=== PATIENT | female | born 1975 | race Caucasian/White ===

== ENCOUNTER 2018-05-16 08:44 | Emergency (ER) | payer BC, OTHER ==
[~2018-05-16] VITALS: Ht 170.2 cm; Wt 114.3 kg
[2018-05-16] MEDS ORDERED: FERROUS SULFAT325 MG ORAL (08:51)
[2018-05-16] MEDS ORDERED: Isovue-300 100ml vial INJ PRN (09:00)
[2018-05-16] MEDS ORDERED: Ketorolac 30mg Inj IV ONE (09:00)
--- NOTE | 2018-05-16 09:02 | Emergency Room Report ---
History of Present Illness General Chief Complaint: Abdominal Pain Source: Patient Present Illness HPI Patient present with complaints of left lower abdominal pain Also pain radiating to the left flank area Patient had recent episode of vomiting and diarrhea That had subsided patient had finished her menstrual cycle And the pain has persisted now over the past several days Patient had to take increased medications over the past night with minimal improvement Denies any fevers or chills There is a pleuritic component to the lower abdominal pain with some worsening with inspiration Denies any vomiting denies any fevers or rash Patient reports previous ovarian cyst Also previous cholecystectomy Allergies: Coded Allergies: CODEINE (Verified Allergy, Unknown, 05/16/18) Patient History Past Medical History: see triage record Pertinent Family History: none Last Menstrual Period: 05/10/18 Reviewed Nursing Documentation: PMH: Agreed; PSxH: Agreed Nursing Documentation-PMH Past Medical History: No History, Except For Hx Cardiac Problems: No - anemia Hx Gastrointestinal Problems: No - diverticulitis, cholecystectomy Review of Systems All Other Systems: negative except mentioned in HPI Physical Exam Vital Signs Date Time Temp Pulse Resp B/P (MAP) Pulse Ox O2 Delivery O2 Flow Rate FiO2 05/16/18 08:48 98.4 82 18 138/97 97 Room Air 98.4 Sp02 EP Interpretation: reviewed, normal General Appearance: no apparent distress Head: normocephalic, atraumatic Eyes: bilateral eye PERRL, bilateral eye EOMI ENT: hearing grossly normal, normal pharynx Neck: supple Respiratory: lungs clear Cardiovascular #1: regular rate, rhythm, no edema Gastrointestinal: non tender - On palpation however subjectively points to left lower quadrant, soft Musculoskeletal: normal inspection Neurologic: alert, oriented x3, responsive Skin: normal color, no rash, warm/dry Lymphatic: no adenopathy Medical Decision Making Diagnostic Impression: Primary Impression: Diverticulitis ER Course With the history exam and presentation, multiple differentials considered, including but not limited to appendicitis, gastritis, cholecystitis, diverticulitis Patient's test is negative Blood work is normal Given the patient's discomfort repeat pain medicine was required and therefore imaging was obtained to evaluate possible perforation CT does show findings consistent with diverticulitis appears to be non- complicated Which also correlates clinically and with laboratory On repeat exam patient has done better Initial antibiotics were provided in the ER IV Patient is afebrile does not appear septic or toxic and will have initial conservative outpatient trial Labs Test 05/16/18 09:20 05/16/18 10:20 White Blood Count 9.4 K/UL (4.8-10.8) Red Blood Count 4.83 M/UL (4.20-5.40) Hemoglobin 12.6 G/DL (12.0-16.0) Hematocrit 38.5 % (37.0-47.0) Mean Corpuscular Volume 80 FL (80-99) Mean Corpuscular Hemoglobin 26.0 PG (27.0-31.0) Mean Corpuscular Hemoglobin Concent 32.6 G/DL (32.0-36.0) Red Cell Distribution Width 12.1 % (11.6-14.8) Platelet Count 332 K/UL (150-450) Mean Platelet Volume 6.0 FL (6.5-10.1) Neutrophils (%) (Auto) 66.0 % (45.0-75.0) Lymphocytes (%) (Auto) 24.8 % (20.0-45.0) Monocytes (%) (Auto) 6.8 % (1.0-10.0) Eosinophils (%) (Auto) 1.4 % (0.0-3.0) Basophils (%) (Auto) 1.0 % (0.0-2.0) Sodium Level 139 MMOL/L (136-145) Potassium Level 3.9 MMOL/L (3.5-5.1) Chloride Level 103 MMOL/L (98-107) Carbon Dioxide Level 24 MMOL/L (21-32) Anion Gap 12 mmol/L (5-15) Blood Urea Nitrogen 9 mg/dL (7-18) Creatinine 0.7 MG/DL (0.55-1.30) Estimat Glomerular Filtration Rate > 60 mL/min (>60) Glucose Level 91 MG/DL (74-106) Calcium Level 8.6 MG/DL (8.5-10.1) Total Bilirubin 0.4 MG/DL (0.2-1.0) Aspartate Amino Transf (AST/SGOT) 14 U/L (15-37) Alanine Aminotransferase (ALT/SGPT) 22 U/L (12-78) Alkaline Phosphatase 77 U/L (46-116) Total Protein 7.9 G/DL (6.4-8.2) Albumin 3.3 G/DL (3.4-5.0) Globulin 4.6 g/dL Albumin/Globulin Ratio 0.7 (1.0-2.7) Human Chorionic Gonadotropin, Quant < 1 mIU/mL (1-6) Urine Color Pale yellow Urine Appearance Clear Urine pH 6.5 (4.5-8.0) Urine Specific [place] 1.005 (1.005-1.035) Urine Protein Negative (NEGATIVE) Urine Glucose (UA) Negative (NEGATIVE) Urine Ketones Negative (NEGATIVE) Urine Blood Negative (NEGATIVE) Urine Nitrite Negative (NEGATIVE) Urine Bilirubin Negative (NEGATIVE) Urine Urobilinogen Normal MG/DL (0.0-1.0) Urine Leukocyte Esterase Negative (NEGATIVE) Urine HCG, Qualitative Negative (NEGATIVE) CT/MRI/US Diagnostic Results CT/MRI/US Diagnostic Results : Impression CT abdomen pelvisImpression: Findings consistent with uncomplicated acute diverticulitis of the mid descending colon Surgically absent gallbladder. Mildly dilated extra hepatic bile ducts, likely related to prior gallbladder surgery. No definite downstream obstructive lesion , but correlation with liver function tests is recommended Enlarged fibroid uterus Incidental finding small fat-containing umbilical hernia Last Vital Signs Date Time Temp Pulse Resp B/P (MAP) Pulse Ox O2 Delivery O2 Flow Rate FiO2 05/16/18 08:48 98.4 82 18 138/97 97 Room Air 98.4 Status: improved Disposition: HOME, SELF-CARE Condition: Improved Scripts Levofloxacin* (LEVAQUIN*) 500 Mg Tablet 500 MG ORAL DAILY for 7 Days, #7 TAB Prov: Sindhu Tomas DO 05/16/18 Hydrocodone Bit/Acetaminophen 10-325* (NORCO 10-325*) 1 Each Tablet 1 TAB ORAL Q8HR PRN for For Pain, #12 TAB 0 Refills PRN PAIN Prov: AnnadoSindhu faust DO 05/16/18 Ibuprofen* (MOTRIN*) 600 Mg Tablet 600 MG ORAL Q8H PRN for For Pain, #20 TAB 0 Refills Prov: Sindhu Tomas DO 05/16/18 Metronidazole* (FLAGYL*) 500 Mg Tablet 500 MG ORAL THREE TIMES A DAY, #21 TAB Prov: Sindhu Tomas DO 05/16/18 Levofloxacin* (LEVAQUIN*) 500 Mg Tablet 500 MG ORAL DAILY for 7 Days, TAB Prov: Sindhu Tomas DO 05/16/18 Referrals: NON PHYSICIAN (PCP) Additional Instructions: Patient is provided with the discharge instructions notified to follow up with primary doctor in the next 2-3 days otherwise return to the er with any worsening symptoms. Please note that this report is being documented using [employer] technology. This can lead to erroneous entry secondary to incorrect interpretation by the dictating instrument. Sindhu Tomas DO May 16, 2018 09:02
[2018-05-16 09:23] VITALS: BP 141/89
[2018-05-16 09:36] LABS: EOSINOPHILS % (AUTO) 1.4 % (0.0-3.0); HEMATOCRIT 38.5 % (37.0-47.0); HEMOGLOBIN 12.6 G/DL (12.0-16.0); LYMPHOCYTES % (AUTO) 24.8 % (20.0-45.0); MEAN CORPUSCULAR VOLUME 80 FL (80-99); MONOCYTES % (AUTO) 6.8 % (1.0-10.0); PLATELET COUNT 332 K/UL (150-450); RED BLOOD COUNT 4.83 M/UL (4.20-5.40); RED CELL DISTRIBUTION WIDTH 12.1 % (11.6-14.8); WHITE BLOOD COUNT 9.4 K/UL (4.8-10.8)
[2018-05-16 09:37] LABS: ANION GAP 12 mmol/L (5-15); BLOOD UREA NITROGEN 9 mg/dL (7-18); CALCIUM 8.6 MG/DL (8.5-10.1); CARBON DIOXIDE 24 MMOL/L (21-32); CHLORIDE 103 MMOL/L (98-107); CREATININE 0.7 MG/DL (0.55-1.30); POTASSIUM 3.9 MMOL/L (3.5-5.1); SODIUM 139 MMOL/L (136-145)
[2018-05-16 09:42] LABS: ALANINE AMINOTRANSFERASE 22 U/L (12-78); ALBUMIN 3.3 G/DL (3.4-5.0); ALBUMIN/GLOBULIN RATIO 0.7 (1.0-2.7); ALKALINE PHOSPHATASE 77 U/L (46-116); ASPARTATE AMINO TRANSFERASE 14 U/L (15-37); BILIRUBIN,TOTAL 0.4 MG/DL (0.2-1.0)
[2018-05-16] MEDS ORDERED: Morphine Sulfate 4mg/ml Inj (IV/IM USE ONLY) IVP ONE ×2 (09:45→10:45)
--- NOTE | 2018-05-16 10:36 | Diagnostic Imaging Report ---
Clinical Indication: Abdominal pain Technique: No oral contrast utilized, per emergency room physician request IV administration nonionic contrast. Venous phase spiral acquisition obtained through the abdomen and pelvis. Multiplanar reconstructions were generated. Total dose length product 1064.99 mGycm. CTDIvol(s) 19.75 mGy. Dose reduction achieved using automated exposure control Comparison: none Findings: There is colonic diverticulosis. There is infiltration of the pericolonic fat adjacent to the mid descending colon surrounding a prominent diverticulum.. No extraluminal gas or focal fluid collection demonstrated The appendix is normal. No small bowel distention. No free or loculated intraperitoneal gas or fluid is evident. There is a small fat-containing umbilical hernia. Distal esophagus, stomach, duodenum are unremarkable. The gallbladder is surgically absent. The extrahepatic bile ducts are mildly dilated, common bile duct measuring up to 10 mm in diameter, no evidence of downstream obstructive lesion. The liver, pancreas, spleen, adrenals, kidneys are all unremarkable. No retroperitoneal or mesenteric mass or adenopathy. The uterus is enlarged with a multilobulated contour and multiple exophytic masses. No adnexal mass demonstrated. The included lung bases are clear. The bones are unremarkable. Impression: Findings consistent with uncomplicated acute diverticulitis of the mid descending colon Surgically absent gallbladder. Mildly dilated extra hepatic bile ducts, likely related to prior gallbladder surgery. No definite downstream obstructive lesion, but correlation with liver function tests is recommended Enlarged fibroid uterus Incidental finding small fat-containing umbilical hernia The CT scanner at [facility] is accredited by the [employer] and the scans are performed using protocols designed to limit radiation exposure to as low as reasonably achievable to attain images of sufficient resolution adequate for diagnostic evaluation.
[2018-05-16 10:41] LABS: APPEARANCE,URINE CLEAR; BILIRUBIN, URINE NEGATIVE (NEGATIVE); COLOR,URINE PALE YELLOW; GLUCOSE, URINE (UA) NEGATIVE (NEGATIVE); KETONES,URINE NEGATIVE (NEGATIVE); LEUKOCYTE ESTERASE ,URINE NEGATIVE (NEGATIVE); NITRITE,URINE NEGATIVE (NEGATIVE); PH,URINE 6.5 (4.5-8.0); PROTEIN,URINE NEGATIVE (NEGATIVE); UROBILINOGEN,URINE NORMAL MG/DL (0.0-1.0)
[2018-05-16] MEDS ORDERED: DiphenhydrAMINE 50mg/ml Inj IVP ONE (10:45)
[2018-05-16] MEDS ORDERED: LEVAQUIN500 MG ORAL ×2 (11:10→11:40)
[2018-05-16] MEDS ORDERED: METRONIDAZOLE500 MG ORAL (11:10)
[2018-05-16] MEDS ORDERED: NORCO 10-325 T1 EACH ORAL (11:10)
[2018-05-16] MEDS ORDERED: IBUPROFEN600 MG ORAL (11:10)
[2018-05-16 11:20] VITALS: BP 132/79
[2018-05-16 12:14] VITALS: BP 141/89
== END 2018-05-16 12:43 | disposition home or self-care (01) ==
LOC: EMR 08:58
DX: K57.32 Diverticulitis of large intestine without perforation or abscess without bleeding (principal); N85.2 Hypertrophy of uterus; Z88.5 Allergy status to narcotic agent; Z90.49 Acquired absence of other specified parts of digestive tract
CPT/HCPCS: 36415; 74177; 80053; 81003; 81025; 84702; 85025; 96361; 96365; 96367; 96375; 96376; 99284; J1200; J1885; J1956; J2270; J2405; Q9967

== ENCOUNTER 2020-03-20 20:52 | Emergency (ER) | payer BC, OTHER ==
[~2020-03-20] VITALS: Ht 170.2 cm; Wt 126.6 kg
[~2020-03-20 20:52] MED LIST: FERROUS SULFAT325 MG ORAL; IBUPROFEN600 MG ORAL; LEVAQUIN500 MG ORAL; METRONIDAZOLE500 MG ORAL; NORCO 10-325 T1 EACH ORAL
[2020-03-20] MEDS ORDERED: CIPRO500 MG PO (21:02)
[2020-03-20 21:10] VITALS: BP 160/101
--- NOTE | 2020-03-20 21:10 | NUR ---
ED Nurse Note: Patient walked into ED for c/o LUQ abdominal pain that is dull in nature onset one week ago. Patient spoke with doctor regarding symptoms and was instruced to come to the ED. Patient denies cough, SOB, recent fever, N/V/D. Patient is aaox4, breathing is normal and unlabored. Patient in bed with safety measures in place; will cont. to monitor.
--- NOTE | 2020-03-20 21:30 | NUR ---
ED Nurse Note: She reports hx of diverticulitis in the past and is concerned the pain is due to that previous diagnosis.
[2020-03-20] MEDS ORDERED: Omnipaque-300 100ml vial INJ PRN (22:15)
[2020-03-20] MEDS ORDERED: Morphine Sulfate 2mg/ml Inj(IV/IM USE ONLY) IVP ONE (22:15)
--- NOTE | 2020-03-20 22:26 | Emergency Room Report ---
History of Present Illness General Chief Complaint: Abdominal Pain Source: Patient Present Illness HPI 44-year-old female here after receiving abnormal test result of an elevated CRP of 29, also complaining of abdominal pain. Patient has a history of diverticulitis which she has had in the past and was uncomplicated but required IV antibiotic treatment inpatient in the hospital for several days. She says that this was 2 years ago. He said that 3 days ago she began having the same type of pain and also some loose stool. She went to an urgent care where she had labs drawn and was started on 7 days of Flagyl and ciprofloxacin. She has been taking his medications for 3 days and says that she feels about the same pain as she did 3 days ago. Says however she came to the emergency department because "they told me that I had a CRP of 29 and to get it checked out." Pain is dull in nature, located in the left lower quadrant, radiates slightly to the left upper quadrant. Denies fevers, chills, chest pain, palpitation, shortness of breath, back pain, other abdominal pain, nausea, vomiting, diarrhea, dysuria. Patient has history of fibroids and says that she experiences chronic abdominal pain periodically. Allergies: Coded Allergies: CODEINE (Verified Allergy, Unknown, 05/16/18) COVID-19 Screening Contact w/high risk pt: No Experienced COVID-19 symptoms?: No COVID-19 Testing performed METHODOLOGIST: No Patient History Last Menstrual Period: 03/07/20 Now: No Nursing Documentation-[facility] Past Medical History: No History, Except For Hx Cardiac Problems: No - anemia Hx Gastrointestinal Problems: No - diverticulitis, cholecystectomy Physical Exam Vital Signs Date Time Temp Pulse Resp B/P (MAP) Pulse Ox O2 Delivery O2 Flow Rate FiO2 03/20/20 20:59 97.5 80 16 160/101 (120) 98 Room Air Sp02 EP Interpretation: reviewed, normal General Appearance: no apparent distress, alert, GCS 15, non-toxic Head: normocephalic, atraumatic Eyes: bilateral eye normal inspection, bilateral eye PERRL ENT: hearing grossly normal, normal pharynx, no angioedema, normal voice Neck: full range of motion, supple/symm/no masses Respiratory: chest non-tender, lungs clear, normal breath sounds, speaking full sentences Cardiovascular #1: regular rate, rhythm, no edema Cardiovascular #2: 2+ carotid (R), 2+ carotid (L), 2+ radial (R), 2+ radial (L) , 2+ dorsalis pedis (R), 2+ dorsalis pedis (L) Gastrointestinal: normal bowel sounds, soft, non-distended, no guarding, no rebound, other - Very mild left lower quadrant abdominal pain on palpation Rectal: deferred Genitourinary: normal inspection, no CVA tenderness Musculoskeletal: back normal, normal range of motion, calf tenderness, gait/ station normal, non-tender Neurologic: alert, motor strength/tone normal, oriented x3, sensory intact, responsive, speech normal Psychiatric: judgement/insight normal, memory normal, mood/affect normal, no suicidal/homicidal ideation Lymphatic: no adenopathy Medical Decision Making Diagnostic Impression: Primary Impression: Diverticulitis Additional Impression: Abdominal pain ER Course Laboratory Tests Test 03/20/20 22:36 03/20/20 22:38 Urine Color Pale yellow Urine Appearance Slightly cloudy Urine pH 6 (4.5-8.0) Urine Specific [place] 1.010 (1.005-1.035) Urine Protein Negative (NEGATIVE) Urine Glucose (UA) Negative (NEGATIVE) Urine Ketones 2+ (NEGATIVE) H Urine Blood 1+ (NEGATIVE) H Urine Nitrite Negative (NEGATIVE) Urine Bilirubin Negative (NEGATIVE) Urine Urobilinogen Normal MG/DL (0.0-1.0) Urine Leukocyte Esterase 1+ (NEGATIVE) H Urine RBC 2-4 /HPF (0 - 2) H Urine WBC 5-10 /HPF (0 - 2) H Urine Squamous Epithelial Cells Moderate /LPF (NONE/OCC) H Urine Bacteria Few /HPF (NONE) Urine HCG, Qualitative Negative (NEGATIVE) White Blood Count 8.3 K/UL (4.8-10.8) Red Blood Count 5.23 M/UL (4.20-5.40) Hemoglobin 13.7 G/DL (12.0-16.0) Hematocrit 42.5 % (37.0-47.0) Mean Corpuscular Volume 81 FL (80-99) Mean Corpuscular Hemoglobin 26.3 PG (27.0-31.0) L Mean Corpuscular Hemoglobin Concent 32.3 G/DL (32.0-36.0) Red Cell Distribution Width 16.0 % (11.6-14.8) H Platelet Count 308 K/UL (150-450) Mean Platelet Volume 7.0 FL (6.5-10.1) Neutrophils (%) (Auto) 61.3 % (45.0-75.0) Lymphocytes (%) (Auto) 30.9 % (20.0-45.0) Monocytes (%) (Auto) 4.7 % (1.0-10.0) Eosinophils (%) (Auto) 2.0 % (0.0-3.0) Basophils (%) (Auto) 1.1 % (0.0-2.0) Sodium Level 137 MMOL/L (136-145) Potassium Level 3.5 MMOL/L (3.5-5.1) Chloride Level 100 MMOL/L (98-107) Carbon Dioxide Level 28 MMOL/L (21-32) Anion Gap 9 mmol/L (5-15) Blood Urea Nitrogen 10 mg/dL (7-18) Creatinine 0.8 MG/DL (0.55-1.30) Estimated Glomerular Filtration Rate > 60 mL/min (>60) Glucose Level 90 MG/DL (74-106) Calcium Level 9.5 MG/DL (8.5-10.1) Total Bilirubin 0.3 MG/DL (0.2-1.0) Aspartate Amino Transferase (AST) 22 U/L (15-37) Alanine Aminotransferase (ALT) 44 U/L (12-78) Alkaline Phosphatase 57 U/L (46-116) Total Protein 8.8 G/DL (6.4-8.2) H Albumin 3.6 G/DL (3.4-5.0) Globulin 5.2 g/dL Albumin/Globulin Ratio 0.7 (1.0-2.7) L Lipase 143 U/L (73-393) IMPRESSION: 1. Status post cholecystectomy. There is some prominence of the biliary ducts which can be seen normally status post cholecystectomy. The common duct measures up to 10 mm. This has a similar appearance compared to the prior exam. An obstructive process cannot be excluded. 2. Cardiomegaly. 3. Enlarged fibroid uterus. The uterus appears increased in size compared to the prior exam and measures 13.6 x 13.9 x 17.5 cm. 4. Diverticulosis without evidence for diverticulitis. 44-year-old female with history of diverticulitis here with abdominal pain. Patient has been treated as an outpatient for the past 3 days with ciprofloxacin and Flagyl and came to the emergency department because she was told by the urgent care clinic that she had a CRP of 29. Patient was in no distress whatsoever and had a largely benign abdominal examination with only some very mild abdominal pain in the left lower quadrant. She was non- peritoneal again was not guarding or had any rebound tenderness. Labs were largely unremarkable and patient's CT abdomen pelvis with IV contrast showed diverticulosis without any overt evidence of diverticulitis or any other complication such as abscess or perforation. Patient has been tolerating p.o. and says that she wishes to continue outpatient treatment of her diverticulitis and will finish her course of ciprofloxacin and Flagyl at home. Was given strict return precautions to come back to the emergency department she has any worsening abdominal pain, fevers, vomiting, evidence of obstruction. She expressed understanding and was discharged. Ddx: Hernia, bladder or kidney stones, diverticulitis, enteritis, appendicitis, genital pathology Last Vital Signs Date Time Temp Pulse Resp B/P (MAP) Pulse Ox O2 Delivery O2 Flow Rate FiO2 03/20/20 20:59 97.5 80 16 160/101 (120) 98 Room Air Scripts Hydrocodone Bit/Acetaminophen 5-325* (NORCO 5-325 TABLET*) 1 Each Tablet 1 TAB ORAL Q4H PRN for For Pain, #10 TAB Prov: Berhane Gleason M.D. 03/21/20 Referrals: NON PHYSICIAN (PCP) Berhane Gleason M.D. Mar 20, 2020 22:26
[2020-03-20 23:20] LABS: BASOPHILS % (AUTO) 1.1 % (0.0-2.0); HEMATOCRIT 42.5 % (37.0-47.0); HEMOGLOBIN 13.7 G/DL (12.0-16.0); LYMPHOCYTES % (AUTO) 30.9 % (20.0-45.0); MEAN CORPUSCULAR VOLUME 81 FL (80-99); MONOCYTES % (AUTO) 4.7 % (1.0-10.0); NEUTROPHILS % (AUTO) 61.3 % (45.0-75.0); PLATELET COUNT 308 K/UL (150-450); RED BLOOD COUNT 5.23 M/UL (4.20-5.40); WHITE BLOOD COUNT 8.3 K/UL (4.8-10.8)
[2020-03-20 23:21] LABS: APPEARANCE,URINE SLIGHTLY CLOUDY; BILIRUBIN, URINE NEGATIVE (NEGATIVE); COLOR,URINE PALE YELLOW; GLUCOSE, URINE (UA) NEGATIVE (NEGATIVE); KETONES,URINE 2+ (NEGATIVE); LEUKOCYTE ESTERASE ,URINE 1+ (NEGATIVE); NITRITE,URINE NEGATIVE (NEGATIVE); PH,URINE 6 (4.5-8.0); PROTEIN,URINE NEGATIVE (NEGATIVE); UROBILINOGEN,URINE NORMAL MG/DL (0.0-1.0)
[2020-03-20 23:22] LABS: ANION GAP 9 mmol/L (5-15); BLOOD UREA NITROGEN 10 mg/dL (7-18); CALCIUM 9.5 MG/DL (8.5-10.1); CARBON DIOXIDE 28 MMOL/L (21-32); CHLORIDE 100 MMOL/L (98-107); CREATININE 0.8 MG/DL (0.55-1.30); POTASSIUM 3.5 MMOL/L (3.5-5.1); SODIUM 137 MMOL/L (136-145)
[2020-03-20 23:26] LABS: ALANINE AMINOTRANSFERASE 44 U/L (12-78); ALBUMIN 3.6 G/DL (3.4-5.0); ALBUMIN/GLOBULIN RATIO 0.7 (1.0-2.7); ALKALINE PHOSPHATASE 57 U/L (46-116); ASPARTATE AMINO TRANSFERASE 22 U/L (15-37); BILIRUBIN,TOTAL 0.3 MG/DL (0.2-1.0)
[2020-03-20 23:30] VITALS: BP 155/88
--- NOTE | 2020-03-20 23:30 | NUR ---
ED Nurse Note: Patient is resting in bed, no acute distress at this time. Patient reports decreased pain after medication admin. Will continue to monitor patient. Breathing is normal and unlabored.
--- NOTE | 2020-03-21 00:18 | Diagnostic Imaging Report ---
EXAM: CT Abdomen and Pelvis With Intravenous Contrast CLINICAL HISTORY: Right upper quadrant pain TECHNIQUE: Axial computed tomography images of the abdomen and pelvis with intravenous contrast. CTDI is 18.30 mGy and DLP is 891.10 mGy-cm. One or more of the following dose reduction techniques were used: automated exposure control, adjustment of the mA and/or kV according to patient size, use of iterative reconstruction technique. Coronal and sagittal reformatted images were created and reviewed. COMPARISON: 05/16/18 FINDINGS: Limitations: Evaluation is limited secondary to artifact from the patient's body habitus and secondary to motion artifact. Lung bases: The lung bases are unremarkable. Heart: Cardiomegaly. ABDOMEN: Liver: The liver is unremarkable. Gallbladder and bile ducts: Status post cholecystectomy. There is some prominence of the biliary ducts which can be seen normally status post cholecystectomy. The common duct measures up to 10 mm. This has a similar appearance compared to the prior exam. An obstructive process cannot be excluded. Pancreas: The pancreas is unremarkable. No ductal dilation. Spleen: The spleen is unremarkable. Adrenals: The adrenals are unremarkable. Kidneys and ureters: Small low-density lesion in the left kidney which is too small to adequately characterize. This measures approximately 7 mm and has a similar appearance compared to the prior exam. No hydronephrosis. Stomach and bowel: Diverticulosis without evidence for diverticulitis. No evidence for significant bowel loop dilation to suggest an obstructive process. PELVIS: Appendix: The appendix is normal. Bladder: The bladder is grossly unremarkable. Reproductive: Enlarged fibroid uterus. The uterus appears increased in size compared to the prior exam and measures 13.6 x 13.9 x 17.5 cm. ABDOMEN and PELVIS: Intraperitoneal space: No free intraperitoneal fluid or free intraperitoneal gas. Bones/joints: Degenerative changes of the thoracolumbar spine. No acute fracture. No dislocation. Soft tissues: Small umbilical hernia containing fat only. Vasculature: Unremarkable. No abdominal aortic aneurysm. Lymph nodes: Small nonspecific retroperitoneal lymph nodes. IMPRESSION: 1. Status post cholecystectomy. There is some prominence of the biliary ducts which can be seen normally status post cholecystectomy. The common duct measures up to 10 mm. This has a similar appearance compared to the prior exam. An obstructive process cannot be excluded. 2. Cardiomegaly. 3. Enlarged fibroid uterus. The uterus appears increased in size compared to the prior exam and measures 13.6 x 13.9 x 17.5 cm. 4. Diverticulosis without evidence for diverticulitis.
[2020-03-21] MEDS ORDERED: NORCO 5-325 TA1 EAC1 ORAL (00:55)
[2020-03-21 01:20] VITALS: BP 142/90
--- NOTE | 2020-03-21 01:20 | NUR ---
ER DISCHARGE NOTE: Patient is cleared to be discharged per ERMD, pt is aox4, on room air, with stable vital signs. pt was given dc and prescription instructions, pt was able to verbalize understanding, pt id band and iv site removed without complications. pt is able to ambulate with steady gait. pt took all belongings.
== END 2020-03-21 01:20 | disposition home or self-care (01) ==
LOC: EMR 21:30
DX: K57.92 Diverticulitis of intestine, part unspecified, without perforation or abscess without bleeding (principal); R10.9 Unspecified abdominal pain; Z90.49 Acquired absence of other specified parts of digestive tract; Z88.6 Allergy status to analgesic agent; I51.7 Cardiomegaly; D25.9 Leiomyoma of uterus, unspecified
CPT/HCPCS: 36415; 74177; 80053; 81003; 81025; 83690; 85025; 96361; 96374; 96375; 99284; J2270; J2405; J7030; Q9965